=== PATIENT | male | born 1970 | race Caucasian/White ===

== ENCOUNTER 2019-12-03 21:20 | Emergency (ER) | payer OTHER ==
[~2019-12-03] VITALS: Ht 177.8 cm; Wt 108.9 kg
[2019-12-03] MEDS ORDERED: cefTRIAXone SOD 1,000 MG VL IM ONE (23:30)
[2019-12-03] MEDS ORDERED: TETANUS-DIPTH-ACEL PERTUSSIS 0.5ML SYRG IM ONE (23:30)
[2019-12-04 00:20] VITALS: BP 149/83
== END 2019-12-04 00:45 | disposition home or self-care (01) ==
LOC: ER 21:23
DX: S01.452A Open bite of left cheek and temporomandibular area, initial encounter (principal); S01.152A Open bite of left eyelid and periocular area, initial encounter; W54.0XXA Bitten by dog, initial encounter; Y93.89 Activity, other specified; Y92.89 Other specified places as the place of occurrence of the external cause; Y99.8 Other external cause status
CPT/HCPCS: 90471; 90715; 96372; 99284; J0696